=== PATIENT | female | born 1970 | race African-American/Black ===

== ENCOUNTER 2018-04-14 05:51 | Emergency (ER) | payer BC ==
[2018-04-14] MEDS ORDERED: predniSONE 20 MG TAB ONE (06:36)
[2018-04-14] MEDS ORDERED: KETOROLAC 30 MG/ML INJ ONE (06:36)
--- NOTE | 2018-04-14 07:22 | ER ---
Nurse's Notes [facility] Name: Maggie Morse Age: 48 yrs Sex: Female : 1970 Arrival Date: 04/14/2018 Time: 05:58 Bed 16 Private MD: Nikhil Figueroa E Diagnosis: Pain in right shoulder;Calcific tendinitis of right shoulder;Sprain of joints and ligaments of other parts of neck Presentation: 04/14 06:00 Presenting complaint: Patient states: that she is having bilateral shoulder pain, the fc right is worse than the left. Radiates up to neck when she turns it. Transition of care: patient was not received from another setting of care. Onset of symptoms was April 12, 2017. Risk Assessment: Do you want to hurt yourself or someone else? Patient reports no desire to harm self or others. Initial Sepsis Screen: Does the patient meet any 2 criteria? HR > 90 bpm. Yes Does the patient have a suspected source of infection? No. Patient's initial sepsis screen is negative. Care prior to arrival: None. 06:00 Method Of Arrival: Ambulatory 06:00 Acuity: FRANK 4 fc Historical: - Allergies: 06:10 Aspirin; fc - Home Meds: 06:10 None [Active]; fc - PMHx: 06:10 None; fc - PSHx: 06:10 None; fc - Immunization history:: Last tetanus immunization: up to date Flu vaccine is not up to date. - Social history:: Smoking status: Patient uses tobacco products, smokes one-half pack cigarettes per day, Patient/guardian denies using alcohol, street drugs. - Ebola Screening: : Patient negative for fever greater than or equal to 101.5 degrees Fahrenheit, and additional compatible Ebola Virus Disease symptoms Patient denies exposure to infectious person Patient denies travel to an Ebola-affected area in the 21 days before illness onset. Screenin:09 Abuse screen: Denies threats or abuse. Nutritional screening: No deficits noted. fc Tuberculosis screening: No symptoms or risk factors identified. Fall Risk None identified. Assessment: 06:53 General: Appears in no apparent distress. Behavior is calm, cooperative, appropriate tl1 for age. Pain: Complains of pain in right trapezius and left trapezius and right mid cervical area and left mid cervical area and right shoulder Pain currently is 10 out of 10 on a pain scale. Quality of pain is described as aching, sharp, shooting. Neuro: Level of Consciousness is awake, alert, obeys commands, Oriented to person, place, time, situation, Pediatric Hospitalist are equal bilaterally. Cardiovascular: Denies chest pain. Respiratory: Airway is patent Trachea midline Respiratory effort is even, unlabored, Breath sounds are clear bilaterally. GI: Abdomen is non-distended, Bowel sounds present X 4 quads. Abd is soft and non tender X 4 quads. : No signs and/or symptoms were reported regarding the genitourinary system. 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 Pain is 10 out of 10 on a pain scale. 06:55 Musculoskeletal: Circulation, motion, and sensation intact. Capillary refill < 3 tl1 seconds, Range of motion: limited in left shoulder and right shoulder. 07:00 Reassessment: pt returned from Xray, awaiting results. tl2 Vital Signs: 06:00 BP 140 / 108; Pulse 92; Resp 20; Temp 98.9(O); Pulse Ox 99% on R/A; Weight 72.57 kg fc (R); Height 5 ft. 7 in. (170.18 cm) (R); Pain 10/10; 07:00 Pulse 84; Resp 18; Pulse Ox 99% on R/A; tl2 07:09 BP 140 / 86; la1 06:00 Body Mass Index 25.06 (72.57 kg, 170.18 cm) ED Course: 05:58 Patient arrived in ED. es 05:58 Nikhil Figueroa MD is Private Physician. es 06:00 Arm band placed on Patient placed in an exam room, on a stretcher. fc 06:05 Robb Miles PA is PHCP. jr8 06:05 Ritesh Rodgers MD is Attending Physician. jr8 06:08 Triage completed. fc 06:09 Patient has correct armband on for positive identification. Bed in low position. Call light in reach. 06:50 Patient moved to radiology via wheelchair. jb2 06:51 X-ray completed. Patient tolerated procedure well. jb2 06:51 Patient moved back from radiology. jb2 06:53 XRAY Shoulder RIGHT 2 view In Process Unspecified. EDMS 06:53 XRAY C Spine Ap/lat In Process Unspecified. EDMS 06:55 No provider procedures requiring assistance completed. Patient did not have IV access tl1 during this emergency room visit. 06:58 Laura Pelletier, RN is Primary Nurse. tl1 07:20 Shiva Lucas MD is Referral Physician. jr8 Administered Medications: 06:31 Drug: TORadol 60 mg Route: IM; Site: right gluteus; tl1 07:28 Follow up: Response: No adverse reaction; Pain is decreased la1 06:31 Drug: predniSONE 60 mg Route: PO; tl1 07:27 Follow up: Response: No adverse reaction la1 Outcome: 07:22 Discharge ordered by MD. jr8 07:28 Discharged to home ambulatory. la1 07:28 Condition: stable 07:28 Discharge instructions given to patient, Instructed on discharge instructions, follow up and referral plans. medication usage, Demonstrated understanding of instructions, follow-up care, medications, Prescriptions given X 3. 07:28 Patient left the ED. la1 Signatures: Dispatcher [employer] EDGA Saadia Rice Jesse jb2 Mery Justice RN RN Robb Arredondo PA PA jr8 Arturo Layton RN RN la1 Laura Pelletier, RN RN tl1 Ginette Carreon RN RN tl2
--- NOTE | 2018-04-14 07:22 | EDPHYS ---
Physician Documentation [facility] Name: Maggie Morse Age: 48 yrs Sex: Female : 1970 Arrival Date: 04/14/2018 Time: 05:58 Bed 16 Private MD: Nikhil Figueroa E ED Physician Ritesh Rodgers HPI: 04/14 06:34 This 48 yrs old Black Female presents to ER via Ambulatory with complaints of Shoulder jr8 Pain. 06:34 The patient or guardian complains of decreased range of motion, pain, tenderness. right jr8 shoulder. Onset: The symptoms/episode began/occurred gradually, 2 week(s) ago, and became worse and became persistent. Modifying factors: the symptoms are alleviated by nothing. The symptoms are aggravated by movement, rotation of arm. Associated signs and symptoms: Pertinent positives: neck pain. Severity of symptoms: At their worst the symptoms were moderate, in the emergency department the symptoms are unchanged. The patient has experienced a previous episode, but today's symptoms are worse. The patient has not recently seen a physician. Denies trauma to arms or neck. 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 Historical: - Allergies: 06:10 Aspirin; fc - Home Meds: 06:10 None [Active]; fc - PMHx: 06:10 None; fc - PSHx: 06:10 None; fc - Immunization history:: Last tetanus immunization: up to date Flu vaccine is not up to date. - Social history:: Smoking status: Patient uses tobacco products, smokes one-half pack cigarettes per day, Patient/guardian denies using alcohol, street drugs. - Ebola Screening: : Patient negative for fever greater than or equal to 101.5 degrees Fahrenheit, and additional compatible Ebola Virus Disease symptoms Patient denies exposure to infectious person Patient denies travel to an Ebola-affected area in the 21 days before illness onset. ROS: 06:34 Eyes: Negative for injury, pain, redness, and discharge, ENT: Negative for injury, jr8 pain, and discharge, Cardiovascular: Negative for chest pain, palpitations, and edema, Respiratory: Negative for shortness of breath, cough, wheezing, and pleuritic chest pain, Abdomen/GI: Negative for abdominal pain, nausea, vomiting, diarrhea, and constipation, Back: Negative for injury and pain, Skin: Negative for injury, rash, and discoloration, Neuro: Negative for headache, weakness, numbness, tingling, and seizure. 06:34 Neck: Positive for pain with movement, stiffness, tenderness, Negative for bony tenderness. 06:34 MS/extremity: Positive for decreased range of motion, pain, tenderness, of the right shoulder. Exam: 06:34 Eyes: Pupils equal round and reactive to light, extra-ocular motions intact. Lids and jr8 lashes normal. Conjunctiva and sclera are non-icteric and not injected. Cornea within normal limits. Periorbital areas with no swelling, redness, or edema. ENT: Nares patent. No nasal discharge, no septal abnormalities noted. Tympanic membranes are normal and external auditory canals are clear. Oropharynx with no redness, swelling, or masses, exudates, or evidence of obstruction, uvula midline. Mucous membranes moist. Chest/axilla: Normal chest wall appearance and motion. Nontender with no deformity. No lesions are appreciated. Cardiovascular: Regular rate and rhythm with a normal S1 and S2. No gallops, murmurs, or rubs. Normal PMI, no JVD. No pulse deficits. Respiratory: Lungs have equal breath sounds bilaterally, clear to auscultation and percussion. No rales, rhonchi or wheezes noted. No increased work of breathing, no retractions or nasal flaring. Abdomen/GI: Soft, non-tender, with normal bowel sounds. No distension or tympany. No guarding or rebound. No evidence of tenderness throughout. Back: No spinal tenderness. No costovertebral tenderness. Full range of motion. Skin: Warm, dry with normal turgor. Normal color with no rashes, no lesions, and no evidence of cellulitis. Neuro: Awake and alert, GCS 15, oriented to person, place, time, and situation. Cranial nerves II-XII grossly intact. Motor strength 5/5 in all extremities. Sensory grossly intact. Cerebellar exam normal. Normal gait. 06:34 Neck: External neck: tenderness, that is mild, of the left mid cervical area, right mid cervical area, left trapezius and right trapezius, C-spine: vertebral tenderness, is not appreciated, Thyroid: appears normal, Trachea: is midline with no obvious abnormalities, ROM/movement: pain, that is mild, with rotation to the left, with rotation to the right, Lymph nodes: no appreciated lymphadenopathy. 06:34 Musculoskeletal/extremity: Extremities: grossly normal except: noted in the right shoulder: decreased ROM, pain, tenderness, posterior, lateral, and anterior right shoulder , ROM: limited active range of motion, limited passive range of motion, limited active range of motion due to pain, limited passive range of motion due to pain, Circulation is intact in all extremities. Sensation intact. Vital Signs: 06:00 BP 140 / 108; Pulse 92; Resp 20; Temp 98.9(O); Pulse Ox 99% on R/A; Weight 72.57 kg fc (R); Height 5 ft. 7 in. (170.18 cm) (R); Pain 10/10; 07:00 Pulse 84; Resp 18; Pulse Ox 99% on R/A; tl2 07:09 BP 140 / 86; la1 06:00 Body Mass Index 25.06 (72.57 kg, 170.18 cm) fc MDM: 06:05 Patient medically screened. jr8 07:19 Data reviewed: vital signs, nurses notes, radiologic studies, plain films, and as a jr8 result, I will discharge patient. Data interpreted: Pulse oximetry: on room air is 99 %. Interpretation: normal. Counseling: I had a detailed discussion with the patient and/or guardian regarding: the historical points, exam findings, and any diagnostic results supporting the discharge/admit diagnosis, radiology results, the need for outpatient follow up, a orthopedic surgeon, to return to the emergency department if symptoms worsen or persist or if there are any questions or concerns that arise at home. Response to treatment: the patient's symptoms have markedly improved after treatment. 04/14 06:22 Order name: XRAY Shoulder RIGHT 2 view jr8 04/14 06:22 Order name: XRAY C Spine Ap/lat jr8 Administered Medications: 06:31 Drug: TORadol 60 mg Route: IM; Site: right gluteus; tl1 07:28 Follow up: Response: No adverse reaction; Pain is decreased la1 06:31 Drug: predniSONE 60 mg Route: PO; tl1 07:27 Follow up: Response: No adverse reaction la1 Disposition: 07:33 Co-signature as Attending Physician, Ritesh Rodgers MD I agree with the assessment and susi plan of care. Disposition: 04/14/18 07:22 Discharged to Home. Impression: Pain in right shoulder, Calcific tendinitis of right shoulder, Sprain of joints and ligaments of other parts of neck. - Condition is Stable. - Discharge Instructions: Arthritis, Rotator Cuff Injury, Shoulder Pain. - Prescriptions for Ibuprofen 800 mg Oral Tablet - take 1 tablet by ORAL route every 12 hours As needed take with food; 20 tablet. Prednisone 20 mg Oral Tablet - take 3 tablet by ORAL route once daily for 5 days; 15 tablet. Zanaflex 4 mg Oral Tablet - take 1 tablet by ORAL route every 8 hours As needed; 20 tablet. - Medication Reconciliation Form, Thank You Letter, Antibiotic Education, Prescription Opioid Use, Work release form form. - Follow up: Shiva Lucas MD; When: 1 week; Reason: Recheck today's complaints, Continuance of care, Re-evaluation by your physician. - Problem is new. - Symptoms have improved. Signatures: Dispatcher [employer] EDRitesh Goldstein MD MD cha Chretien, Felicia RN RN Robb Arredondo PA PA jr8 Arturo Layton RN RN la1 Laura Pelletier RN RN tl1 Corrections: (The following items were deleted from the chart) 07:28 07:22 04/14/2018 07:22 Discharged to Home. Impression: Pain in right shoulder; Calcific la1 tendinitis of right shoulder; Sprain of joints and ligaments of other parts of neck. Condition is Stable. Forms are Work release form, Medication Reconciliation Form, Thank You Letter, Antibiotic Education, Prescription Opioid Use. Follow up: Shiva Lucas; When: 1 week; Reason: Recheck today's complaints, Continuance of care, Re-evaluation by your physician. Problem is new. Symptoms have improved. jr8
--- NOTE | 2018-04-14 09:23 | RAD REPORT ---
EXAM DESCRIPTION: RAD - C Spine Ap/Lat - 04/14/2018 6:56 am CLINICAL HISTORY: Neck pain FINDINGS: No fracture or dislocation is seen. Mild spondylosis involves C5-6.
--- NOTE | 2018-04-14 09:39 | RAD REPORT ---
EXAM DESCRIPTION: RAD - Shoulder Right 2 View - 04/14/2018 6:58 am CLINICAL HISTORY: Right shoulder pain FINDINGS: No fracture or dislocation is seen. Calcification adjacent to the lateral aspect of the ri ght humeral head may indicate calcific tendinitis. Moderate osteoarthritis of the AC joint
== END 2018-04-14 07:28 | disposition home or self-care (01) ==
LOC: ER 05:51
DX: M75.31 Calcific tendinitis of right shoulder (principal); S13.8XXA Sprain of joints and ligaments of other parts of neck, initial encounter; F17.210 Nicotine dependence, cigarettes, uncomplicated; Z88.6 Allergy status to analgesic agent
CPT/HCPCS: 72040; 96372; 99283; J7512

== ENCOUNTER 2019-01-29 05:13 | Observation (INO) | payer BC ==
--- NOTE | 2019-01-29 05:43 | EDPHYS ---
Physician Documentation [facility] Name: Maggie Morse Age: 48 yrs Sex: Female : 1970 Arrival Date: 01/29/2019 Time: 05:14 Bed 6 Private MD: ED Physician Ritesh Rodgers HPI: 01/29 05:38 This 48 yrs old Black Female presents to ER via Ambulatory with complaints of Chest susi Pain. 05:38 The patient or guardian reports chest pain that is located primarily in the substernal susi area. Onset: just prior to arrival, this morning. The pain does not radiate. Associated signs and symptoms: Pertinent positives: shortness of breath. The chest pain is described as a heaviness, squeezing. Duration: The patient or guardian reports a single episode, that is still ongoing. Modifying factors: The symptoms are alleviated by nothing. the symptoms are aggravated by nothing. Severity of pain: At its worst the pain was mild moderate in the emergency department the pain has improved mildly. The patient has not experienced similar symptoms in the past. 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 - Social history:: Smoking status: Patient/guardian denies using tobacco. - Ebola Screening: : No symptoms or risks identified at this time. ROS: 05:40 Constitutional: Negative for fever, chills, and weight loss, Eyes: Negative for injury, susi pain, redness, and discharge, ENT: Negative for injury, pain, and discharge, Neck: Negative for injury, pain, and swelling, Abdomen/GI: Negative for abdominal pain, nausea, vomiting, diarrhea, and constipation, Back: Negative for injury and pain, : Negative for injury, bleeding, discharge, and swelling, MS/Extremity: Negative for injury and deformity, Skin: Negative for injury, rash, and discoloration, Neuro: Negative for headache, weakness, numbness, tingling, and seizure, Psych: Negative for depression, anxiety, suicide ideation, homicidal ideation, and hallucinations, Allergy/Immunology: Negative for hives, rash, and allergies, Endocrine: Negative for neck swelling, polydipsia, polyuria, polyphagia, and marked weight changes, Hematologic/Lymphatic: Negative for swollen nodes, abnormal bleeding, and unusual bruising. 05:40 Cardiovascular: Positive for 05:40 Respiratory: Positive for cough, shortness of breath, at rest. Exam: 05:40 Constitutional: This is a well developed, well nourished patient who is awake, alert, susi and in no acute distress. Head/Face: Normocephalic, atraumatic. Eyes: Pupils equal round and reactive to light, extra-ocular motions intact. Lids and lashes normal. Conjunctiva and sclera are non-icteric and not injected. Cornea within normal limits. Periorbital areas with no swelling, redness, or edema. ENT: Nares patent. No nasal discharge, no septal abnormalities noted. Tympanic membranes are normal and external auditory canals are clear. Oropharynx with no redness, swelling, or masses, exudates, or evidence of obstruction, uvula midline. Mucous membranes moist. Neck: Trachea midline, no thyromegaly or masses palpated, and no cervical lymphadenopathy. Supple, full range of motion without nuchal rigidity, or vertebral point tenderness. No Meningismus. Chest/axilla: Normal chest wall appearance and motion. Nontender with no deformity. No lesions are appreciated. Cardiovascular: Regular rate and rhythm with a normal S1 and S2. No gallops, murmurs, or rubs. Normal PMI, no JVD. No pulse deficits. Abdomen/GI: Soft, non-tender, with normal bowel sounds. No distension or tympany. No guarding or rebound. No evidence of tenderness throughout. Back: No spinal tenderness. No costovertebral tenderness. Full range of motion. Skin: Warm, dry with normal turgor. Normal color with no rashes, no lesions, and no evidence of cellulitis. MS/ Extremity: Pulses equal, no cyanosis. Neurovascular intact. Full, normal range of motion. Neuro: Awake and alert, GCS 15, oriented to person, place, time, and situation. Cranial nerves II-XII grossly intact. Motor strength 5/5 in all extremities. Sensory grossly intact. Cerebellar exam normal. Normal gait. Psych: Awake, alert, with orientation to person, place and time. Behavior, mood, and affect are within normal limits. 05:40 Respiratory: the patient does not display signs of respiratory distress, Respirations: normal, Breath sounds: are clear throughout, Respiratory rate: 18 05:40 Musculoskeletal/extremity: DVT Exam: No signs of deep vein thrombosis. no pain, no swelling, no tenderness, negative Homans' sign noted on exam, no appreciated bluish discoloration, no erythema, no increased warmth. Vital Signs: 05:31 BP 148 / 96; Pulse 103; Resp 18; Temp 98.7; Pulse Ox 100% ; Weight 77.11 kg; Height 5 ea ft. 8 in. (172.72 cm); Pain 10/10; 06:34 BP 131 / 90; Pulse 90; Resp 18; Pulse Ox 100% on R/A; ea 08:22 BP 107 / 65; Pulse 59; Resp 17; Pulse Ox 98% ; Pain 5/10; jl7 05:31 Body Mass Index 25.85 (77.11 kg, 172.72 cm) ea MDM: 05:18 Patient medically screened. [facility] 05:41 Data reviewed: vital signs, nurses notes, EMS record, lab test result(s), EKG, susi radiologic studies, plain films. 01/29 05:38 Order name: Basic Metabolic Panel [facility] 01/29 05:38 Order name: CBC with Diff susi 01/29 05:38 Order name: LFT's; Complete Time: 06:35 susi 01/29 05:38 Order name: Magnesium; Complete Time: 06:35 [facility] 01/29 05:38 Order name: NT PRO-BNP; Complete Time: 06:35 susi 01/29 05:38 Order name: PT-INR; Complete Time: 06:22 susi 01/29 05:38 Order name: Troponin (emerg Dept Use Only); Complete Time: 06:35 susi 01/29 05:38 Order name: Lipase; Complete Time: 06:35 susi 01/29 05:38 Order name: Urine Culture [facility] 01/29 05:39 Order name: Basic Metabolic Panel; Complete Time: 06:35 EDMS 01/29 05:39 Order name: CBC with Automated Diff EDMS 01/29 06:39 Order name: Manual Differential EDMS 01/29 06:49 Order name: Urine Dipstick--Ancillary (enter results) [facility] 01/29 06:49 Order name: Urine --Ancillary (enter results) [facility] 01/29 05:38 Order name: XRAY Chest (1 view) [facility] 01/29 05:38 Order name: EKG; Complete Time: 05:39 [facility] 01/29 05:38 Order name: Cardiac monitoring; Complete Time: 06:09 [facility] 01/29 05:38 Order name: EKG - Nurse/Tech; Complete Time: 06:09 [facility] 01/29 05:38 Order name: IV Saline Lock; Complete Time: 06:09 [facility] 01/29 05:38 Order name: Labs collected and sent; Complete Time: 06:09 [facility] 01/29 05:38 Order name: O2 Per Protocol; Complete Time: 06:09 [facility] 01/29 05:38 Order name: O2 Sat Monitoring; Complete Time: 06:09 [facility] 01/29 05:38 Order name: Urine Dipstick-Ancillary (obtain specimen); Complete Time: 08:20 [facility] Administered Medications: 05:45 Drug: Zofran 4 mg Route: IVP; Site: right antecubital; ea 07:00 Follow up: Response: No adverse reaction ea 05:50 Drug: morphine 2 mg Route: IVP; Site: right antecubital; ea 07:01 Follow up: Response: No adverse reaction; Pain is decreased ea 06:09 Drug: Pepcid 20 mg Route: IVP; Site: right antecubital; ea 06:19 Follow up: Response: No adverse reaction ea 06:09 Drug: Lovenox 1 mg/kg Route: Sub-Q; Site: right lower abdomen; ea 07:00 Follow up: Response: No adverse reaction ea 06:09 Drug: Lopressor (metoprolol TARTRATE) 50 mg Route: PO; ea 08:23 Follow up: Response: No adverse reaction; Blood pressure is lowered jl7 Disposition: 01/29/19 05:42 Hospitalization ordered by Thad Cooper for Observation. Preliminary diagnosis are Chest pain, unspecified, Dyspnea, Essential (primary) hypertension, Tobacco abuse counseling, Tobacco use. - Bed requested for Telemetry/MedSurg (observation). - Status is Observation. iw - Condition is Stable. - Problem is new. - Symptoms have improved. UTI on Admission? No Signatures: Dispatcher [employer] EDCandy Chambers Corey, MD MD cha Williams, Irene RN Haily Mascorro RN nAkit Hussein ea, RN jl7 Corrections: (The following items were deleted from the chart) 05:44 05:42 [facility] Preliminary diagnosis susi is Chest pain, unspecified; Dyspnea. Bed requested for Telemetry/MedSurg (observation). Status is Observation. Condition is Stable. Problem is new. Symptoms have improved. UTI on Admission? No. susi 05:46 05:44 01/29/2019 05:42 [facility] susi Preliminary diagnosis is Chest pain, unspecified; Dyspnea; Essential (primary) hypertension. Bed requested for Telemetry/MedSurg (observation). Status is Observation. Condition is Stable. Problem is new. Symptoms have improved. UTI on Admission? No. susi 08:34 05:46 01/29/2019 05:42 Hospitalization Ordered by [facility] for Observation. bd Preliminary diagnosis is Chest pain, unspecified; Dyspnea; Essential (primary) hypertension; Tobacco abuse counseling; Tobacco use. Bed requested for Telemetry/MedSurg (observation). Status is Observation. Condition is Stable. Problem is new. Symptoms have improved. UTI on Admission? No. susi 09:18 08:34 01/29/2019 05:42 Hospitalization Ordered by [facility] for Observation. iw Preliminary diagnosis is Chest pain, unspecified; Dyspnea; Essential (primary) hypertension; Tobacco abuse counseling; Tobacco use. Bed requested for Telemetry/MedSurg (observation). Status is Observation. Condition is Stable. Problem is new. Symptoms have improved. UTI on Admission? No. bd
--- NOTE | 2019-01-29 05:43 | ER ---
Nurse's Notes [facility] Name: Maggie Morse Age: 48 yrs Sex: Female : 1970 Arrival Date: 01/29/2019 Time: 05:14 Bed 6 Private MD: Diagnosis: Chest pain, unspecified;Dyspnea;Essential (primary) hypertension;Tobacco abuse counseling;Tobacco use Presentation: 01/29 05:24 Presenting complaint: Patient states: Reports she started having chest pain since 2300 ea last night , pt reports the pain worsened throughout the night, pt reports pain comes and goes and it's a "grabbing pain", rates pain 01/18. Transition of care: patient was not received from another setting of care. Onset of symptoms was January 29, 2019. Risk Assessment: Do you want to hurt yourself or someone else? Patient reports no desire to harm self or others. Initial Sepsis Screen: Does the patient meet any 2 criteria? No. Patient's initial sepsis screen is negative. Does the patient have a suspected source of infection? No. Patient's initial sepsis screen is negative. Care prior to arrival: None. 05:24 Method Of Arrival: Ambulatory ea 05:24 Acuity: FRANK 3 ea Triage Assessment: 05:32 General: Appears uncomfortable, Behavior is calm, cooperative, appropriate for age. ea Pain: Complains of pain in anterior aspect of left upper chest. Cardiovascular: Patient's skin is warm and dry. Respiratory: Airway is patent Respiratory effort is even, unlabored, Respiratory pattern is regular, symmetrical. 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 - Social history:: Smoking status: Patient/guardian denies using tobacco. - Ebola Screening: : No symptoms or risks identified at this time. Screenin:30 Abuse screen: Denies threats or abuse. Nutritional screening: No deficits noted. ea Tuberculosis screening: No symptoms or risk factors identified. Fall Risk Assessment: 05:32 Reassessment: see triage assessment. ea 06:20 Reassessment: Patient and/or family updated on plan of care and expected duration. Pain ea level reassessed. Patient is alert, oriented x 3, equal unlabored respirations, skin warm/dry/pink. Reports pain has decreased. 07:00 Reassessment: Patient appears in no apparent distress at this time. Patient and/or jl7 family updated on plan of care and expected duration. Pain level reassessed. Patient is alert, oriented x 3, equal unlabored respirations, skin warm/dry/pink. 08:22 Reassessment: Pt reports pain is "Down from a 20 when I came in here to a 5 now." jl7 Updated pt on POC. Vital Signs: 05:31 BP 148 / 96; Pulse 103; Resp 18; Temp 98.7; Pulse Ox 100% ; Weight 77.11 kg; Height 5 ea ft. 8 in. (172.72 cm); Pain 10/10; 06:34 BP 131 / 90; Pulse 90; Resp 18; Pulse Ox 100% on R/A; ea 08:22 BP 107 / 65; Pulse 59; Resp 17; Pulse Ox 98% ; Pain 5/10; jl7 05:31 Body Mass Index 25.85 (77.11 kg, 172.72 cm) ea ED Course: 05:14 Patient arrived in ED. ds1 05:18 Ritesh Rodgers MD is Attending Physician. susi 05:29 Triage completed. ea 05:30 Arm band placed on right wrist. Patient placed in an exam room, on a stretcher, on ea acquisitions logistics analyst, on pulse oximetry. 05:31 Patient has correct armband on for positive identification. Bed in low position. Call ea light in reach. Side rails up X2. continuing education director on. Pulse ox on. NIBP on. 05:32 Patient maintains SpO2 saturation greater than 95% on room air. ea 05:41 Thad Cooper is Hospitalizing Provider. susi 05:50 XRAY Chest (1 view) In Process Unspecified. EDMS 06:19 No provider procedures requiring assistance completed. Patient admitted, IV remains in ea place. 07:34 Ankit Egan RN is Primary Nurse. jl7 Administered Medications: 05:45 Drug: Zofran 4 mg Route: IVP; Site: right antecubital; ea 07:00 Follow up: Response: No adverse reaction ea 05:50 Drug: morphine 2 mg Route: IVP; Site: right antecubital; ea 07:01 Follow up: Response: No adverse reaction; Pain is decreased ea 06:09 Drug: Pepcid 20 mg Route: IVP; Site: right antecubital; ea 06:19 Follow up: Response: No adverse reaction ea 06:09 Drug: Lovenox 1 mg/kg Route: Sub-Q; Site: right lower abdomen; ea 07:00 Follow up: Response: No adverse reaction ea 06:09 Drug: Lopressor (metoprolol TARTRATE) 50 mg Route: PO; ea 08:23 Follow up: Response: No adverse reaction; Blood pressure is lowered travis7 Outcome: 05:42 Decision to Hospitalize by Provider. susi 06:33 Instructed on the need for admit, Demonstrated understanding of instructions. ea 09:18 Patient left the ED. iw Signatures: Dispatcher [employer] Ritesh Rojas MD MD cha Sanford, Demi ds1 Joelle Drake RN RN iw Leal, Jahala, RN RN jl7 Haily Barry RN RN ea
[2019-01-29] MEDS ORDERED: MORPHINE 2 MG/ML SYR ONE (05:45)
[2019-01-29] MEDS ORDERED: METOPROLOL TAR 50 MG TAB ONE (05:45)
[2019-01-29] MEDS ORDERED: FAMOTIDINE 20 MG/2 ML VIAL IV ONE (05:46)
[2019-01-29] MEDS ORDERED: ENOXAPARIN 80 MG/0.8 ML SQ ONE (05:46)
[2019-01-29] MEDS ORDERED: ONDANSETRON 4 MG/2 ML VIAL ONE (05:49)
[2019-01-29 06:15] LABS: Absolute Lymphocytes (CBC) 2.2 K/uL (0.7-4.9); Basophils % 0.8 % (0-1.3); Hematocrit 41.6 % (36.0-45.0); MPV 8.3 fL (7.6-11.3); RBC Red Blood Cell Count 4.47 M/uL (3.86-4.86)
[2019-01-29 06:16] LABS: Protime INR 0.9
[2019-01-29 06:33] LABS: ALT/SGPT 27 U/L (12-78); AST/SGOT 15 U/L (15-37); Albumin 3.5 g/dL (3.4-5.0); Alkaline Phosphatase 54 U/L (45-117); BUN Blood Urea Nitrogen 6 mg/dL (7-18); Bicarbonate 28 mmol/L (21-32); Bilirubin Direct < 0.1 mg/dL (0-0.2); Bilirubin Total 0.2 mg/dL (0.2-1.0); Glucose Level 86 mg/dL (74-106); Lipase 72 U/L (73-393); NT PRO-BNP 53 pg/mL (<125); Potassium 3.7 mmol/L (3.5-5.1); Protein, Total 7.3 g/dL (6.4-8.2); Sodium Level 142 mmol/L (136-145); Troponin (Emerg Dept Use Only) < 0.02 ng/mL (0.0-0.045)
[2019-01-29 06:39] LABS: Blood Morphology Comment NOT SEEN (NOT SEEN); Platelet Estimate ADEQ
--- NOTE | 2019-01-29 07:32 | P.HP ---
Certification for Inpatient Patient admitted to: Observation With expected LOS: <2 Midnights Practitioner: I am a practitioner with admitting privileges, knowledge of patient current condition, hospital course, and medical plan of care. Services: Services provided to patient in accordance with Admission requirements found in Title 42 Section 412.3 of the Code of Federal Regulations Patient History Date of Service: 01/29/19 Reason for admission: Chest pain History of Present Illness: 48-year-old woman, current smoker with no known past medical history presented emergency department with a complaint of chest pain, located on the anterior chest, maximum intensity 10/10, nonradiating, associated palpitation, lightheadedness and shortness of breath. In the ED, initial troponin is negative. EKG demonstrates sinus rhythm with no ischemic changes. Chest x-ray shows no acute disease. Patient has significant CAD risk factors including tobacco use and family history of coronary artery disease. She is placed under observation for ACS rule out. Allergies No Known Allergies Allergy (Unverified 07/21/16 16:48) - Past Medical/Surgical History Past Medical History: Patient denies medical history - Family History Father -: Heart disease Mother -: Heart disease - Social History Smoking Status: Current every day smoker Alcohol use: No CD- Drugs: No Review of Systems Other: General: No fever, no malaise, no unintentional weight loss. Eyes: No eye discharge, Respiratory: No cough, no shortness of breath. GI: No abdominal pain, no nausea no vomit, no constipation, no diarrhea. Genitourinary: No dysuria, no urinary frequency, no incontinence, no hematuria. Musculoskeletal: No joint pains, or joint swelling, no gait instability. Neurology: No headache, no asymmetric, weakness, no problem with swallowing. Except as documented, all other systems reviewed and negative. Physical Examination - Physical Exam General: Alert, In no apparent distress, Oriented x3 HEENT: Normocephalic, Mucous membr. moist/pink Neck: Supple, JVD not distended, No Thyromegaly Respiratory: Clear to auscultation bilaterally, Normal air movement Cardiovascular: No edema, Regular rate/rhythm, Normal S1 S2, No murmurs Capillary refill: <2 Seconds Gastrointestinal: Normal bowel sounds, Soft and benign, Non-distended, No tenderness Musculoskeletal: No swelling, No erythema Integumentary: No rashes, No erythema Neurological: Normal speech, Normal strength at 5/5 x4 extr, Cranial nerves 3- 12 intact - Studies Laboratory Data (last 24 hrs) 01/29/19 05:55: PT 10.7, INR 0.90 01/29/19 05:55: WBC 4.8, Hgb 14.1, Hct 41.6, Plt Count 233 01/29/19 05:55: Sodium 142, Potassium 3.7, BUN 6 L, Creatinine 0.82, Glucose 86 , Magnesium 2.0, Total Bilirubin 0.2, AST 15, ALT 27, Alkaline Phosphatase 54, Lipase 72 L Assessment and Plan - Problems (Diagnosis) (1) Chest pain Current Visit: Yes Status: Acute (2) Tobacco use Current Visit: Yes Status: Acute - Plan Place under observation Trend troponin x3 Check lipid profile Sublingual nitroglycerin p.r.n. Aspirin Morphine p.r.n. for pain. Smoking cessation counseling provided. - Advance Directives Does patient have a Living Will: No Does patient have a Durable POA for Healthcare: No
[2019-01-29 07:34] LABS: Urine Blood NEGATIVE (NEG); Urine Glucose NEGATIVE (NEG); Urine Protein NEGATIVE (NEG); Urine Specific Gravity 1.015 (1.005-1.030)
--- NOTE | 2019-01-29 07:49 | EKG ---
Test Date: 2019-01-29 Test Time: 05:24:58 Park Maintenance Technician: GORDO MEASUREMENT RESULTS: Intervals: Rate: 92 CO: 134 QRSD: 82 QT: 376 QTc: 464 [place]: P: 73 CO: 134 QRS: 42 T: 26 INTERPRETIVE STATEMENTS: Normal sinus rhythm Normal ECG Compared to ECG 12/18/1999 00:25:00 T-wave abnormality no longer present Electronically Signed On 01-29-19 07:48:59 CDT by Jose Guadalupe Damian
--- NOTE | 2019-01-29 08:19 | RAD REPORT ---
EXAM DESCRIPTION: Leyda Single View01/29/2019 5:51 am CLINICAL HISTORY: Chest pain COMPARISON: none FINDINGS: The lungs appear clear of acute infiltrate. The heart is normal size IMPRESSION: No acute abnormalities displayed
[2019-01-29] MEDS ORDERED: NITROGLYCERIN 0.4 MG/TAB SL PRN (09:05)
[2019-01-29] MEDS: NICOTINE 14 MG/PAT TD SCH (09:05)
[2019-01-29] MEDS ORDERED: ENOXAPARIN 40 MG/0.4 ML SQ SCH (09:05)
[2019-01-29 09:36] VITALS: BMI 25.8
[2019-01-29] MEDS: MORPHINE 2 MG/ML SYR IV PRN ×2 (09:41→16:41)
[2019-01-29] MEDS: ASPIRIN EC 81 MG TAB PO SCH (09:41)
[2019-01-29 10:33] LABS: HDL Cholesterol 56 mg/dL (40-60); LDL Cholesterol, Calculated 189 (<130); Troponin I < 0.02 ng/mL (0.0-0.045)
[2019-01-29] MEDS ORDERED: INFLUENZA VACCINE (for 3y+) 0.5 ML DOSE IMVAC ONE (15:00)
--- NOTE | 2019-01-29 15:23 | ECHO ---
HEIGHT: 5 ft 8 in WEIGHT: 170 lb 0 oz DATE OF STUDY: REFER DR: Wilberto Fisher MD 2-DIMENSIONAL: YES M.MODE: YES DOPPLER: YES COLOR FLOW: YES TDS: NO PORTABLE: NO DEFINITY: NO BUBBLE STUDY: NO DIAGNOSIS: CHEST PAIN CARDIAC HISTORY: CATHERIZATION: NO SURGERY: NO PROSTHETIC VALVE: NO PACEMAKER: NO MEASUREMENTS (cm) DIASTOLIC (NORMALS) SYSTOLIC (NORMALS) IVSd 0.9 (0.6-1.2) LA Diam 3.1 (1.9-4.0) LVEF 69% LVIDd 3.9 (3.5-5.7) LVIDs 2.5 (2.0-3.5) %FS 38% LVPWd 0.9 (0.6-1.2) Ao Diam 2.6 (2.0-3.7) 2 DIMENSIONAL ASSESSMENT: RIGHT ATRIUM: NORMAL LEFT ATRIUM: NORMAL RIGHT VENTRICLE: NORMAL LEFT VENTRICLE: NORMAL TRICUSPID VALVE: NORMAL MITRAL VALVE: NORMAL PULMONIC VALVE: NORMAL AORTIC VALVE: NORMAL PERICARDIAL EFFUSION: NONE AORTIC ROOT: NORMAL LEFT VENTRICULAR WALL MOTION: NORMAL DOPPLER/COLOR FLOW: NORMAL COMMENTS: NORMAL 2D ECHOCARDIOGRAM WITH DOPPLER. TECHNOLOGIST: Hank MCKEON
--- NOTE | 2019-01-29 18:59 | PN ---
Date of Progress Note: 01/29/2019 Subjective: Patient seen and examined. Chart reviewed and case discussed with RN. Patient states s he still has intermittent episodes of chest pain and palpitations. Medications: List reviewed. Physical Examination: Vital Signs: Temperature 98.4, heart rate 65, blood pressure 136/90, respirations 18, O2 100% on mary lou m air. General: Awake, alert, oriented x3, not in any acute distress. CV: S1, S2. Regular rate and rhythm. Peripheral pulses present. Respiratory: Moving air well bilaterally. No wheezing or stridor. No use of accessory muscles. Gastrointestinal: Abdomen is soft, nontender, nondistended. Positive bowel sounds. Extremities: No clubbing, cyanosis, or edema. No calf tenderness. Neuro: Cranial nerves 2 through 12 intact grossly. No focal neurological deficits. Speech is george l. Laboratory Data: Troponin less than 0.02 x2, triglycerides 71, cholesterol 259, LDL 189, HDL 56. Assessment: A 48-year-old female with; 1.Chest pain, rule out ACS. Cardiac enzymes x2 have been negative. We will obtain echocardiogram. Cardiology has been consulted. We will continue with chest pain guidelines. 2.Mixed hyperlipidemia. We will start on statin. Patient has been counseled regarding diet and exe rcise. 3.Nicotine dependence with cigarette smoking, counseled. Plan: Follow up with echocardiogram. Cardiology recommendations and likely discharge once cleared b y Cardiology. Chest x-ray is clear. EKG showed normal sinus rhythm. Telemetry has not shown any arrhythmias. /DISHA Voice ID: [id number] Report ID: [id number]
--- NOTE | 2019-01-29 20:05 | CON ---
History Of Present Illness: Ms. Morse is 48. She started having chest pain. She had mild chest elsie n when she went to bed, woke up feeling fine and on the way to work the chest pain recur. She seems to think her heart beats very fast right after the chest pain begins and it resolves a few minutes la ter. She has had a few episodes while she has been here in the hospital. Her EKGs and cardiac enzym es are normal. She has elevated cholesterol and she smokes. She has had no surgeries, except for a tubal ligation. She is 3, para 3. No previous history of heart disease. No history of hype rtension or diabetes. Physical Examination: Measurements: 5 feet, 8 inches, 170 pounds. HEENT: Normal. Lungs: Clear. Cardiac: Within normal limits. Abdomen: Soft. Extremities: Normal. No cyanosis, clubbing, or edema. Distal pulses palpable/ Electrocardiogram is normal. I think the patient should do a stress test tomorrow and an echo was done, still examining her, it is a normal looking echocardiogram. If she passes the stress test tomorrow, we will feel comfortable s ending her home. She should quit smoking and make contact with the primary care physician so that he r dyslipidemia can be treated. GARRET/DISHA Voice ID: [id number] Report ID: [id number]
[2019-01-29] MEDS ORDERED: ATORVASTATIN 40 MG TAB PO SCH (21:00)
[2019-01-30] MEDS: MORPHINE 2 MG/ML SYR IV PRN (03:45)
[2019-01-30 04:57] LABS: Absolute Lymphocytes (CBC) 2.3 K/uL (0.7-4.9); Basophils % 0.5 % (0-1.3); Lymphocytes % 50.9 % (15.3-44.8); MPV 8.5 fL (7.6-11.3); RBC Red Blood Cell Count 4.35 M/uL (3.86-4.86)
[2019-01-30 05:04] LABS: BUN Blood Urea Nitrogen 11 mg/dL (7-18); Bicarbonate 29 mmol/L (21-32); Glucose Level 89 mg/dL (74-106); Sodium Level 143 mmol/L (136-145)
[2019-01-30] MEDS ORDERED: ENOXAPARIN 40 MG/0.4 ML SQ SCH (06:00)
[2019-01-30] MEDS: NICOTINE 14 MG/PAT TD SCH (09:00)
[2019-01-30] MEDS: ASPIRIN EC 81 MG TAB PO SCH (10:18)
--- NOTE | 2019-01-30 10:36 | PN ---
Admitted to Dr. Fisher on 01/29/2019. The patient was seen by Dr. Damian for chest pain. Today, jono ent is pain free. Telemetry shows no changes. Echocardiogram was normal. Stress test is pending. We will see what that shows prior to making final decisions. TIA Voice ID: [id number] Report ID: [id number]
--- NOTE | 2019-01-30 10:50 | P.DS ---
Admission Date: 01/29/19 Discharge Date: 01/30/19 Primary Care Provider: Dr. Alonso Disposition: ROUTINE DISCHARGE Discharge Condition: GOOD Reason for Admission: Chest pain Consultations: Cardiology-Dr. Damian/Chaz Procedures: ECHO: EF 69% LEFT VENTRICULAR WALL MOTION: NORMAL DOPPLER/COLOR FLOW: NORMAL COMMENTS: NORMAL 2D ECHOCARDIOGRAM WITH DOPPLER. Cardiac stress test: Cardiac stress test showed no stress-induced ischemia Medical Problem List: Chest pain Hyperlipidemia GERD Tobacco abuse Brief History of Present Illness: 48-year-old female presented to the emergency room with chest pain. Patient with history of tobacco abuse. Patient was admitted for further evaluation. Hospital Course: Patient presented with chest pain. Patient was admitted for further evaluation. Cardiology was consulted. Cardiac enzymes unremarkable x3. Echocardiogram showed normal ejection fraction. Cardiology recommended cardiac stress test. Cardiac stress test performed. Stress test showed no stress-induced ischemia. Chest pain may be GERD related. At discharge patient will continue with aspirin 81 mg daily and Protonix 40 mg daily. LDL also found to be elevated. At discharge she will continue with Lipitor 20 mg daily. Patient with history of tobacco abuse. Tobacco cessation addressed in detail. Patient plans to start Chantix as this was given to her prior to admission. Recommend follow up with cardiology in 2-4 weeks to follow up this hospitalization. Patient with hyperlipidemia. LDL elevated. At discharge patient will continue with Lipitor 20 mg daily. Recommend to recheck fasting lipid panel and CMP in 2 -4 weeks to monitor progress. Further adjustment can be done by her PCP. Patient with history of tobacco abuse. Tobacco cessation addressed in detail. Patient plans to quit. Patient was given Chantix prior to her admission. She was hesitant to use the medication due to potential side effects. At discharge she will try Chantix to help her quit smoking. Patient may have underlying GERD. Will recommend patient to continue with Protonix 40 mg daily. Patient may benefit with GI evaluation as an outpatient if symptoms persist. Vital Signs/Physical Exam: Temp Pulse Resp BP Pulse Ox 97.2 F 68 17 120/72 100 01/30/19 08:00 01/30/19 08:00 01/30/19 08:00 01/30/19 08:00 01/30/19 08:00 General: Alert, In no apparent distress, Oriented x3, Cooperative HEENT: Atraumatic Neck: Supple Respiratory: Clear to auscultation bilaterally, Normal air movement Cardiovascular: Normal pulses, Regular rate/rhythm Gastrointestinal: Normal bowel sounds, Soft and benign, Non-distended, No tenderness, No masses, No rebound, No guarding Musculoskeletal: No erythema, No tenderness, No warmth Integumentary: No tenderness/swelling, No erythema, No warmth, No cyanosis Neurological: Normal speech, Normal strength at 5/5 x4 extr, Normal tone, Normal affect Laboratory Data at Discharge: WBC 4.5 K/uL (4.3-10.9) 01/30/19 04:33 Hgb 13.7 g/dL (12.0-15.0) 01/30/19 04:33 Hct 40.0 % (36.0-45.0) 01/30/19 04:33 Plt Count 212 K/uL (152-406) 01/30/19 04:33 PT 10.7 SECONDS (9.5-12.5) 01/29/19 05:55 INR 0.90 01/29/19 05:55 Sodium 143 mmol/L (136-145) 01/30/19 04:33 Potassium 4.0 mmol/L (3.5-5.1) 01/30/19 04:33 BUN 11 mg/dL (7-18) 01/30/19 04:33 Creatinine 0.80 mg/dL (0.55-1.3) 01/30/19 04:33 Glucose 89 mg/dL (74-106) 01/30/19 04:33 Magnesium 2.0 mg/dL (1.8-2.4) 01/29/19 05:55 Total Bilirubin 0.2 mg/dL (0.2-1.0) 01/29/19 05:55 AST 15 U/L (15-37) 01/29/19 05:55 ALT 27 U/L (12-78) 01/29/19 05:55 Alkaline Phosphatase 54 U/L (45-117) 01/29/19 05:55 Troponin I < 0.02 ng/mL (0.0-0.045) 01/30/19 00:54 Triglycerides 71 mg/dL (<150) 01/29/19 10:03 Cholesterol 259 mg/dL (<200) H 01/29/19 10:03 HDL Cholesterol 56 mg/dL (40-60) 01/29/19 10:03 Cholesterol/HDL Ratio 4.63 01/29/19 10:03 Lipase 72 U/L (73-393) L 01/29/19 05:55 Home Medications: Aspirin [Aspirin EC 81 MG] 81 mg PO DAILY #90 tablet. 01/30/19 Atorvastatin Calcium [Lipitor] 20 mg PO BEDTIME #30 tab 01/30/19 Pantoprazole [Protonix Tab] 40 mg PO DAILY #30 tab 01/30/19 New Medications: Aspirin [Aspirin EC 81 MG] 81 mg PO DAILY #90 tablet. Atorvastatin Calcium [Lipitor] 20 mg PO BEDTIME #30 tab Pantoprazole [Protonix Tab] 40 mg PO DAILY #30 tab Patient Discharge Instructions: 1. Recommend follow up with PCP in 1 week to follow up this hospitalization. 2. Patient presented with chest pain. Patient was admitted for further evaluation. Cardiology was consulted. Cardiac enzymes unremarkable x3. Echocardiogram showed normal ejection fraction. Cardiology recommended cardiac stress test. Cardiac stress test performed. Stress test showed no stress-induced ischemia. Chest pain may be GERD related. At discharge patient will continue with aspirin 81 mg daily and Protonix 40 mg daily. LDL also found to be elevated. At discharge she will continue with Lipitor 20 mg daily. Patient with history of tobacco abuse. Tobacco cessation addressed in detail. Patient plans to start Chantix as this was given to her prior to admission. Recommend follow up with cardiology in 2-4 weeks to follow up this hospitalization. 3. Patient with hyperlipidemia. LDL elevated. At discharge patient will continue with Lipitor 20 mg daily. Recommend to recheck fasting lipid panel and CMP in 2-4 weeks to monitor progress. Further adjustment can be done by her PCP. 4. Patient with history of tobacco abuse. Tobacco cessation addressed in detail. Patient plans to quit. Patient was given Chantix prior to her admission. She was hesitant to use the medication due to potential side effects. At discharge she will try Chantix to help her quit smoking. 5. Patient may have underlying GERD. Will recommend patient to continue with Protonix 40 mg daily. Patient may benefit with GI evaluation as an outpatient if symptoms persist. Diet: AHA Activity: Ad juan diego Time spent managing pt's care (in minutes): 55
[2019-01-30 12:27] VITALS: BP 99/57; TEMP 97.8
--- NOTE | 2019-01-30 13:11 | TREADMILL ---
70% H.R.: 119 85% H.R.: 145 90% H.R.: 153 100% H.R.: 170 DX: CHEST PAIN Date of Study: 01/30/2019 Ht: 5 8 Wt: 170 lb 0 oz Consulting Physician: BASIL MEDICATIONS: ASPIRIN, LIPITOR, LOVENOX, NICODERM, NITROSTAT HISTORY: 48 YEAR OLD FEMALE WITH COMPLAINTS OF CHEST PAIN. HISTORY OF HYPERLIPIDEMIA, SMOKER OF PACK DAILY AND NON DRINKER. PHYSICIAL EXAMINATION: RESTING B.P.: 117/91 RESTING H.R.: 69 RESTING EKG: SINUS RHYTHM, POSSIBLE OLD MYOCARDIAL INFARCTION. PROTOCOL: Zaplox EXERCISE TIME: 8:00 MAXIMUM HEART RATE: 146 85 % OF PREDICTED B.P. AT PEAK STRESS: 145/94 H.R. AT 1 MINUTE POST EXERCISE: 121 IMPRESSION: TREADMILL STOPPED DUE TO TARGET HEART RATE BEING REACHED AND PATIENT FATIGUE. NO SUPRAVENTRICULAR TACHYCARDIA, VENTRICULAR TACHYCARDIA OR PREMATURE ATRIAL COMPLEXES NOTED. OCCASIONAL PREMATURE VENTRICULAR COMPLEXES NOTED. PATIENT REPORTED CHEST PAIN 9/10. NEGATIVE STRESS TEST FOR ISCHEMIA.
[2019-01-30 19:52] VITALS: O2SAT 99
== END 2019-01-30 15:28 | disposition home or self-care (01) ==
LOC: ER 05:13 → ERHOLD 07:38 → 4TH 09:04
PROVIDERS: ADMIT Internal Medicine; ATTEND Family Medicine
DX: R07.9 Chest pain, unspecified (principal); E78.2 Mixed hyperlipidemia; K21.9 Gastro-esophageal reflux disease without esophagitis; I25.10 Atherosclerotic heart disease of native coronary artery without angina pectoris; F17.210 Nicotine dependence, cigarettes, uncomplicated; Z23 Encounter for immunization
CPT/HCPCS: 93017; 93005; 93306; 87088; 85025 ×2; 87086; 80048 ×2; 36415; 83735; 81025; 85610; 80061; 80076; 81003; 84484 ×4; 83690; 83880; 71045; 90471; 94760 ×3; 96375; 96372; 96374; 99284; Q2035; J1650 ×2; J2270 ×4; J2405; G0378 ×3